=== PATIENT | female | born 1955 | race Caucasian/White ===

== ENCOUNTER 2018-05-09 02:07 | Inpatient (IN) | payer OTHER ==
[2018-05-09] VITALS (7 sets, daily range): BP systolic 112–134; BP diastolic 63–71
[~2018-05-09] VITALS: Ht 175.2 cm; Wt 119.0 kg
--- NOTE | ~2018-05-09 | EKG ---
[place], [place] ELECTROCARDIOGRAM REPORT NAME: STEVEN CADENA UNIT #: [id number] ROOM: 519 DOCTOR: JOSELYN DRAFT REPORT BIRTHDATE: [birth year] [facility] Test Date: 2018-05-09 Test Time: 02:51:53 Pat Name: STEVEN CADENA Department: Room: 519 Gender: F Bakery Decorator: Milagros Alejandre : 1955 Requested By: DESTIN LANDERS Order Number: [id number] Reading MD: Juancarlos Burdick MD Measurements Intervals [place] Rate: 82 P: 47 ME: 172 QRS: -7 QRSD: 90 T: -14 QT: 372 QTc: 435 Interpretive Statements Sinus rhythm Posterior infarct, old, cannot be excluded Borderline T abnormalities, inferior leads Electronically Signed On 05-09-2018 19:36:03 PDT by Juancarlos Burdick MD CM:EKGRPT:ELECTROCARDIOGRAM REPORT [id number] DESTIN HO DRAFT REPORT DESTIN LANDERS DO
[2018-05-09] MEDS ORDERED: LEVOTHYROXINE200 MC2 PO (02:31)
[2018-05-09] MEDS ORDERED: METOPROLOL SUCC25 M2 PO ×2 (02:31→04:50)
[2018-05-09] MEDS ORDERED: XARE20MG PO (02:31)
[2018-05-09] MEDS ORDERED: HYDROXYZINE PAM50 MG PO (02:32)
[2018-05-09 03:00] LABS: BASO # 0.1 10*3/uL (0.0-0.1); EOS # 0.5 10*3/uL (0.0-0.4); EOS % 5.6 % (1.0-4.0); HEMATOCRIT 37.5 % (37.0-47.0); LYMPH # 3.3 10*3/uL (1.3-4.4); LYMPH % 39.6 % (27.0-41.0); MEAN CELL VOLUME 78.5 fl (81.0-99.0); MEAN CORPUSCULAR HGB 25.1 pg (27.0-31.0); MEAN PLATELET VOLUME 10.8 fl (9.6-12.3); MONO % 12.1 % (3.0-9.0); NEUT # 3.5 10*3/uL (2.3-7.9); NEUT % 41.6 % (47.0-73.0); PLATELET COUNT AUTOMATED 292 10*3/uL (130-400); RED BLOOD COUNT 4.78 10*6/uL (4.10-5.10); RED CELL DISTRI WIDTH 14.2 % (0-14.5); WHITE BLOOD COUNT 8.4 10*3/uL (4.8-10.8)
[2018-05-09 03:21] LABS: ALBUMIN 3.6 gm/dl (3.1-4.5); ALKALINE PHOSPHATASE 163 U/L (45-117); BUN 12 mg/dl (7-24); CHLORIDE 103 mmol/L (98-107); CPK 111 U/L (26-192); CREATININE 1.14 mg/dL (0.55-1.02); POTASSIUM 3.3 mmol/L (3.5-5.1); SGOT/AST 22 IU/L (3-35); SGPT/ALT 18 U/L (12-78); SODIUM 139 mmol/L (136-145); TOTAL PROTEIN 7.9 gm/dL (6.4-8.2)
[2018-05-09 03:23] LABS: ACETAMINOPHEN (TYLENOL) < 2.0 ug/ml (10-30); ETHYL ALCOHOL < 3.0 mg/dl (<3); TROPONIN I < 0.015 ng/ml (<0.045)
[2018-05-09 03:25] LABS: BILIRUBIN NEGATIVE (NEGATIVE); BLOOD NEGATIVE (NEGATIVE); CLARITY CLEAR (CLEAR); COLOR YELLOW (YELLOW); GLUCOSE NEGATIVE (NEGATIVE); KETONE NEGATIVE (NEGATIVE); NITRITE NEGATIVE (NEGATIVE); UROBILINOGEN 0.2 E.U./dl (0.2-1.0)
[2018-05-09 03:26] LABS: LEUKO ESTERASE NEGATIVE (NEGATIVE)
[2018-05-09 03:28] LABS: URINE AMPHETAMINES < 1000 (1000ng/ml); URINE BARBITURATES < 200 (200ng/ml); URINE BENZODIAZEPINES < 200 (200ng/ml); URINE CANNABINOIDS (THC) < 50 (50ng/ml); URINE COCAINE < 300 (300ng/ml); URINE METHADONE < 300 (300ng/ml); URINE OPIATES > 300 (300ng/ml)
[2018-05-09 03:29] LABS: URINE PHENCYCLIDINE < 25 (25ng/ml)
[2018-05-09 03:31] LABS: BACTERIA TRACE; EPITHELIAL CELLS 0-2; RBC 0-2 rbc/hpf (0-2)
[2018-05-09] MEDS ORDERED: TOPROL XL25 MG PO (07:30)
[2018-05-10] VITALS: BP 104/63
[2018-05-10 07:01] LABS: BASO # 0.1 10*3/uL (0.0-0.1); BASO % 1.1 % (0.0-1.0); EOS # 0.2 10*3/uL (0.0-0.4); EOS % 4.3 % (1.0-4.0); HEMATOCRIT 33.7 % (37.0-47.0); HEMOGLOBIN 10.8 g/dl (12.0-16.0); LYMPH # 1.7 10*3/uL (1.3-4.4); MEAN CELL VOLUME 76.9 fl (81.0-99.0); MEAN CORPUSCULAR HGB 24.7 pg (27.0-31.0); MONO # 0.6 10*3/uL (0.1-1.0); NEUT # 2.7 10*3/uL (2.3-7.9); NEUT % 50.4 % (47.0-73.0); PLATELET COUNT AUTOMATED 246 10*3/uL (130-400); RED BLOOD COUNT 4.38 10*6/uL (4.10-5.10); RED CELL DISTRI WIDTH 14.3 % (0-14.5); WHITE BLOOD COUNT 5.3 10*3/uL (4.8-10.8)
[2018-05-10 07:10] LABS: ACT PARTIAL THROMBO TIME 25.8 SECONDS (20.8-31.5); INTERNATIONAL NORM RATIO 1.1 (2.0-3.5)
[2018-05-10 07:24] LABS: ALBUMIN 3.2 gm/dl (3.1-4.5); BUN 9 mg/dl (7-24); CHLORIDE 109 mmol/L (98-107); CHOLESTEROL 152 mg/dL (<200); CREATININE 0.83 mg/dL (0.55-1.02); PHOSPHOROUS 3.9 mg/dL (2.5-4.9); POTASSIUM 3.7 mmol/L (3.5-5.1); SGOT/AST 15 IU/L (3-35); SGPT/ALT 17 U/L (12-78); SODIUM 144 mmol/L (136-145); TRIGLYCERIDES 57 mg/dl (<150); VLDL CHOLESTEROL 11 mg/dL (6-40)
[2018-05-10 07:29] LABS: ALKALINE PHOSPHATASE 140 U/L (45-117); FREE T4 2.06 ng/dl (0.76-1.46); HDL CHOLESTEROL 62 mg/dl (40-60); LDL CHOLESTEROL 79 mg/dL (9-159); THYROID STIM HORMONE (HS) 0.458 uIU/ml (0.358-4.75)
[2018-05-10 08:00] VITALS: BP 103/62
[2018-05-10 10:03] LABS: VITAMIN D, 25-HYDROXY 68.5 ng/mL (30-100)
[2018-05-10 12:00] VITALS: BP 117/51
[2018-05-10 16:00] VITALS: BP 120/62
[2018-05-10 20:00] VITALS: BP 113/61
[2018-05-11] VITALS: BP 117/67
[2018-05-11 08:00] VITALS: BP 130/92
[2018-05-11 12:00] VITALS: BP 114/78
[2018-05-11 16:00] VITALS: BP 122/84
[2018-05-11 20:00] VITALS: BP 107/54
[2018-05-12] VITALS: BP 101/57
[2018-05-12 08:00] VITALS: BP 110/63
[2018-05-12 12:00] VITALS: BP 107/52
[2018-05-12 16:00] VITALS: BP 100/54
[2018-05-12 20:00] VITALS: BP 123/68
[2018-05-13] VITALS: BP 100/57
[2018-05-13 08:00] VITALS: BP 125/83
[2018-05-13] MEDS ORDERED: METHOCARBAMOL750 M1 PO (11:16)
[2018-05-13] MEDS ORDERED: ROPINIROLE HYD0.5 MG PO (11:16)
[2018-05-13 14:00] VITALS: BP 115/72
== END 2018-05-13 15:10 | disposition home or self-care (01) | DRG 896 ==
LOC: ED 02:07 → 5E 03:53 → EDHOLD 03:53 → 5E 04:14
PROVIDERS: Emergency Medicine; Internal Medicine
DX: F11.23 Opioid dependence with withdrawal (principal); N17.0 Acute kidney failure with tubular necrosis; D68.59 Other primary thrombophilia; E87.6 Hypokalemia; G89.21 Chronic pain due to trauma; E66.9 Obesity, unspecified; G47.00 Insomnia, unspecified; E89.0 Postprocedural hypothyroidism; M54.5 Low back pain; F41.9 Anxiety disorder, unspecified; G25.81 Restless legs syndrome; Z85.3 Personal history of malignant neoplasm of breast; Z92.21 Personal history of antineoplastic chemotherapy; Z79.01 Long term (current) use of anticoagulants; Z90.12 Acquired absence of left breast and nipple; Z90.49 Acquired absence of other specified parts of digestive tract; Z90.710 Acquired absence of both cervix and uterus; Z87.81 Personal history of (healed) traumatic fracture; Z82.49 Family history of ischemic heart disease and other diseases of the circulatory system; Z82.5 Family history of asthma and other chronic lower respiratory diseases; Z88.8 Allergy status to other drugs, medicaments and biological substances; Z79.899 Other long term (current) drug therapy; Z68.38 Body mass index [BMI] 38.0-38.9, adult; Z86.718 Personal history of other venous thrombosis and embolism